=== PATIENT | female | born 1960 | race Caucasian/White ===

== ENCOUNTER 2023-07-03 14:36 | Emergency (ER) | payer MEDICARE, SELFPAY ==
[2023-07-03 14:37] VITALS: BP 183/111; PULSE 106; RESP 24; TEMP 36.1; O2SAT 97; BMI 27.6
[2023-07-03 14:46] VITALS: BP 183/111; PULSE 106; RESP 24; TEMP 36.1; O2SAT 97
--- NOTE | 2023-07-03 15:03 | EX.ED.UPPERE ---
HPI History of Present Illness HPI Narrative: Patient present with left shoulder, neck, and upper chest pain that has been constant for the past 3 days. Patient states the pain started in her left shoulder area then went to her right shoulder yesterday. Patient states it is now back in her left shoulder area. Patient admits to a cough with some clear sputum. Patient admits to occasional shortness of breath. Patient also admits to some rhinorrhea. Patient states her pain is sharp. Patient states it is mainly in the left shoulder and left neck area. Patient states it is worse with movement. Patient states it is better with rest. Chief Complaint: Upper Extremity Injury Informant: patient Onset/Context/Timing Onset: Days (3) Context: Gradual Onset Timing: Continuous Quality of Pain: Sharp Location: Left shoulder and left neck Worsened by: Movement Relieved by: Rest Associated Symptoms Associated Symptoms: Negative for Parasthesia, Weakness or Loss of Funtion [facility] Medical History (Updated 07/03/23 @ 17:[address] Gab Up DO) Anxiety Asthma Cancer of left kidney COPD (chronic obstructive pulmonary disease) Depression Histoplasmosis HTN (hypertension) Uterine cancer Allergy/AdvReac Type Severity Reaction Status Date / Time No Known Allergies Allergy Verified 07/03/23 15:23 Surgical History (Updated 07/03/23 @ 15:[address] Gab Up DO) History of back surgery History of hysterectomy History of left nephrectomy Social History (Updated 07/03/23 @ 15:[address] Gab Up DO) Smoking Status: Current every day smoker tobacco type: cigarettes Smoking packs per day: 1 Smoking cigarettes per day: 20.0 ROS ROS ED Constitutional Constitutional ED: Denies chills or fever(s) Eyes Eyes: Denies blurry vision or change in vision ENT ENT ED: Reports rhinorrhea; Denies sore throat Cardiovascular Cardiovascular: Denies chest pain or palpitations Respiratory/Chest Respiratory/Chest: Reports cough, dyspnea and sputum Gastrointestinal Gastrointestinal: Reports nausea; Denies vomiting Genitourinary Genitourinary ED: Denies dysuria or hematuria Musculoskeletal Musculoskeletal: Reports neck pain; Denies back pain Integumentary Denies abscess or rash Neurologic Neurologic: Denies headache(s) or weakness Allergic/Immunologic Allergic/Immunologic ED: Denies mouth swelling or urticaria EXAM Physical Exam Const Vital Signs: 07/03/23 14:37 07/03/23 14:46 07/03/23 14:46 Temperature 97.0 F L 97 F L Temperature Source Temporal Temporal Pulse Rate 106 H 106 H Respiratory Rate 24 H 24 H Respiratory Effort Short of Breath Respiratory Pattern Normal Blood Pressure 183/111 H 183/111 H Blood Pressure Mean 135 135 Pulse Ox 97 97 Oxygen Delivery Method Room Air Room Air Positive well nourished and well developed General Appearance ED: well developed and NAD HEENT Reports moist mucous membranes Neck supple and no JVD Resp normal respiratory effort and clear to auscultation bilaterally Cardio regular rate and regular rhythm GI normal to inspection, nondistended, normoactive bowel sounds and non-tender Palpation: soft Extremity normal to inspection Extremity Narrative: There is mild tenderness over the left shoulder and trapezius muscle. There is no obvious deformity noted. Range of motion was limited in all motions of the left shoulder secondary to pain. Radial pulses are equal bilaterally. Sensation was intact to light touch bilaterally in the upper extremities. Strength is 5/5 bilaterally upper extremities. General Extremety ED: Yes tenderness; Negative for edema General Extremity: Negative for edema Neuro oriented x3, CN's II-XII intact bilaterally and no sensory deficits noted Sensorium / Orientation: alert Motor Exam: strength 5/5 throughout Psych mental status grossly normal Skin no rashes or lesions noted MDM MDM MDM Narrative Medical decision making narrative: Differential diagnosis includes pneumonia, viral upper respiratory infection, bronchitis, pneumothorax, hypertensive urgency, cardiac dysrhythmia, COVID-19 infection, RSV infection, and influenza infection. Chest x-ray will be obtained to assess for pneumonia and pneumothorax. EKG will be obtained to assess for cardiac dysrhythmia and cardiac ischemia. CBC will be obtained to assess for leukocytosis and anemia. Basic metabolic profile will be obtained to assess for electrolyte abnormality and renal function. High-sensitivity troponin will be obtained to assess for cardiac ischemia. COVID-19 rapid antigen will be obtained to assess for COVID-19 infection. Influenza A and influenza B antigens will be obtained to assess for influenza infection. RSV antigen will be obtained to assess for RSV infection. Lab Data Attestation: I reviewed the patient's lab results. Lab results narrative: CBC was reviewed. There is a slight leukocytosis of 12.3. The remainder was essentially within normal limits. Basic metabolic profile was reviewed. BUN was 29 and creatinine was 1.14. High-sensitivity troponin was reviewed and was normal at 7. COVID-19 rapid antigen was reviewed and was negative. Influenza A and influenza B antigens were reviewed and were negative. RSV rapid antigen was reviewed and was negative. Radiography Chest X-Ray - ED: 2 View, Read by ED Physician, Read by Radiologist and No Acute Disease Diagnostic Testing: PA and lateral chest x-ray was obtained. There are 2 views. On my independent interpretation, lung rodrigues are clear. There is normal cardiac silhouette. Bony thorax is normal. There is no acute process noted. Radiologist also interpreted the x-ray and agrees. EKG Initial EKG: Attestation: I personally reviewed and interpreted this EKG as follows: Interpretation: Sinus Rhythm (81) and No Acute Injury Pattern Comments: EKG was obtained. On my independent interpretation, it showed a normal sinus rhythm with a rate of 81. DC interval, QRS interval, and QTc intervals were all normal. [place] was normal. There are no acute ST or T wave changes. Prior EKG tracings: not available for review Prior: No Prior Treatment and Re-Evaluation Narrative: Patient was given a dose of morphine here. Patient states her shoulder pain was starting to return on reevaluation. Patient was given a repeat dose of morphine. Patient was advised of her findings. Patient was advised that this may be musculoskeletal pain. Patient was given a prescription for short course of [place]. Patient was instructed to use ice to the area. Patient was instructed to follow-up with her primary care physician in 5 to 7 days. Patient understood and was agreeable with the plan. All questions were answered. Discharge Plan Triage Chief Complaint: Upper Extremity Injury Other Complaint: Cold Sx ED Provider: Gab Up Dx/Rx/DC Orders Clinical Impression: Muscle strain of left shoulder region, Viral upper respiratory tract infection Instructions: ED URI, Viral, No Abx (Adult), ED Shoulder Pain, Uncertain Cause Primary Care Provider: Myles Miguel Referrals: Myles Miguel DO [Primary Care Provider] - 5-7 Days Disposition Disposition: Home, Self Care
[2023-07-03] MEDS: Morphine 4 MG/ML Syringe IV ×2 (15:25→18:11)
[2023-07-03 15:32] VITALS: BP 160/88; PULSE 82; RESP 15
[2023-07-03 15:38] LABS: Absolute Lymphocyte Count 1.69 X10^3/uL (0.83-4.51); Absolute Neutrophil Count 9.4 X10^3/uL (2.0-7.7); Basophil# 0.05 X10^3/uL; Basophil% 0.4 % (0-1); Eosinophil# 0.13 X10^3/uL; Eosinophils% 1.1 % (0-5); Hematocrit 44.7 % (37-47); Hemoglobin 15.1 g/dL (12.0-15.0); Lymphocyte # 1.69 X10^3/ul (0.83-4.51); Lymphocyte % 13.8 % (19-41); Mean Corp Hgb Conc 33.8 g/dL (32-36); Mean Corpuscular Hgb 31.2 pg (27.0-32.0); Mean Corpuscular Volume 92.4 fL (81-99); Monocyte# 0.91 X10^3/uL; Monocyte% 7.4 % (0-10); NRBC Flagged by Analyzer 0 % (0-5); Neutrophil # 9.43 X10^3/uL (2.7-7.7); Platelet Count 301 K/mm3 (150-450); RBC Distribution Width CV 13.3 % (11.6-14.6); RBC Distribution Width SD 45.7 fl (35.1-43.9); Red Blood Count 4.84 M/mm3 (4.2-5.4); White Blood Count 12.3 K/mm3 (4.4-11.0)
--- NOTE | 2023-07-03 15:40 | NURSING ---
NO OLD EKG
--- NOTE | 2023-07-03 15:43 | RAD_ITS ---
EXAM: XR CHEST, 2 VIEWS CLINICAL INDICATION: Dyspnea TECHNIQUE: Frontal and lateral views of the chest. COMPARISON: No relevant prior studies available. FINDINGS: LUNGS AND PLEURAL SPACES: Unremarkable. No consolidation or edema. No pneumothorax. No effusion. HEART: Unremarkable. Cardiac silhouette not enlarged. MEDIASTINUM: Central airways and mediastinal contour are unremarkable. BONES/JOINTS: Unremarkable. SOFT TISSUES: Unremarkable. RAD/Chest PA and Lateral IMPRESSION: No radiographic evidence of acute cardiopulmonary disease. Electronically Signed: Garrison Lee MD at 16:48 EDT ,
[2023-07-03 15:59] LABS: Anion Gap 3 (5-15); BUN 29 mg/dL (7-18); BUN/Creat Ratio 25.4 RATIO (10-20); Calcium,Total 9.5 mg/dL (8.5-10.1); Chloride 107 mmol/L (98-107); Creatinine, Serum 1.14 mg/dL (0.55-1.02); EST Glomerular Filtration Rate 51 mL/min (>60); Est Glom Filt Rate - Afr Amer 62 mL/min (>60); Estimated Creatinine Clearance 46.04 ml/min; Glucose 126 mg/dL (74-106); Sodium Level 136 mmol/L (136-145); Troponin-I HS 7 pg/mL (3.0-54.0)
[2023-07-03 16:04] VITALS: BP 152/82
[2023-07-03 16:27] VITALS: BP 136/67
[2023-07-03 17:49] VITALS: BP 156/74; PULSE 72; RESP 16; O2SAT 98
== END 2023-07-03 18:35 | disposition home or self-care (01) ==
PROVIDERS: Emergency Provider Emergency Medicine; PCP Family Medicine; Visit Provider Emergency Medicine
DX: S46.912A Strain of unspecified muscle, fascia and tendon at shoulder and upper arm level, left arm, initial encounter (principal); J44.9 Chronic obstructive pulmonary disease, unspecified; J06.9 Acute upper respiratory infection, unspecified; I10 Essential (primary) hypertension; F17.210 Nicotine dependence, cigarettes, uncomplicated; Z85.528 Personal history of other malignant neoplasm of kidney; Z85.42 Personal history of malignant neoplasm of other parts of uterus
CPT/HCPCS: 71046; 80048; 84484; 85025; 87428; 87807; 93005; 96374; 96375; 99285; A4216